=== PATIENT | female | born 1950 ===

== ENCOUNTER 2025-03-21 02:25 | Emergency (ER) | payer OTHER ==
[~2025-03-21] VITALS: Ht 165.1 cm; Wt 104.3 kg
[~2025-03-21 02:25] MED LIST: PACERONE100 MG; PROTONIX20 MG; SYNTHROID150 MCG; TOPROL XL25 MG
[2025-03-21] MEDS ORDERED: MORPHINE SULFATE 4 MG/ML VIAL IV STA (03:03)
[2025-03-21] MEDS ORDERED: ONDANSETRON HCL 2 MG/ML VIAL IV STA (03:04)
[2025-03-21] MEDS ORDERED: ONDANSETRON HCL 2 MG/ML VIAL ONE (03:10)
[2025-03-21] MEDS ORDERED: SODIUM CHLORIDE 0.45 % 1,000 ML IV ONE (03:15)
[2025-03-21 04:08] LABS: ALT/SGPT 23.0 U/L (12-78); AST/SGOT 19.0 U/L (15-37); BILIRUBIN TOTAL 0.7 mg/dL (0.3-1.2); BUN CREA RATIO 25.0 (7.0-25.0); CREATININE SERUM 0.88 mg/dL (0.55-1.02); GFR 62.64; GLOBULINA 3.4 G/DL (2.4-3.5); GLUCOSE FASTING 123.0 mg/dL (65-100); OSMOLALITY SERUM 282.0 MOSM/KG (275-295)
[2025-03-21] MEDS ORDERED: FAMOTIDINE/PF 20 MG/2 ML VIAL ONE (06:19)
[2025-03-21 07:30] LABS: BASO % 0.2 % (0.1-1.2); EOS # 0.01 (0.04-0.54); EOS % 0.1 % (0.7-7.0); LYMPH # 0.66 (1.18-3.74); LYMPH % 7.5 % (19.3-53.1); MEAN PLATELET VOLUME 9.40 fl (9.4-12.4); MONO # 0.48 (0.24-0.82); MONO % 5.5 % (4.7-12.5); NEUT # 7.57 (1.56-6.13); NEUT % 86.6 % (34.0-71.1); RED CELL DISTRIBUTION WIDTH 13.6 % (11.6-14.4)
[2025-03-21] MEDS ORDERED: KETOROLAC TROMETHAMINE 30 MG VIAL ONE (08:08)
[2025-03-21] MEDS ORDERED: KETOROLAC TROMETHAMINE 30 MG VIAL IV STA (08:09)
[2025-03-21 08:11] LABS: URINE APPEARANCE Clear; URINE BILIRRUBIN Negative (NEGATIVE); URINE BLOOD Small; URINE COLOR Yellow; URINE GLUCOSE Negative (NEGATIVE); URINE LEUKOCYTE Negative; URINE NITRATE Negative; URINE PROTEIN Negative (NEGATIVE); URINE UROBILINOGEN 0.2 E.U./dl
[2025-03-21 08:16] LABS: URINE BACTERIA 7.1 uL (0.0-1933); URINE RBC 5.5 uL (0.0-20.8)
[2025-03-21 08:19] LABS: URINE CAST 0.00 uL (0.0-1.40); URINE EPITHELIAL CELLS 0.9 uL (0.0-38.8); URINE KETONE 40 (NEGATIVE); URINE WBC 1.5 uL (0.0-23.2)
[2025-03-21] MEDS ORDERED: TAMSULOSIN HCL 0.4 MG CAP PO ONE ×2 (10:00→10:01)
[2025-03-21] MEDS ORDERED: MORPHINE SULFATE 4 MG/ML VIAL IV ONE ×2 (10:00→14:45)
== END 2025-03-21 19:55 | disposition designated cancer center or children's hospital (05) ==
LOC: ER 02:25
PROVIDERS: General Practice
DX: N20.0 Calculus of kidney (principal); R10.2 Pelvic and perineal pain; M54.50 Low back pain, unspecified; R11.10 Vomiting, unspecified; E11.9 Type 2 diabetes mellitus without complications; I10 Essential (primary) hypertension; Z88.5 Allergy status to narcotic agent
CPT/HCPCS: 36415; 74176; 96365; 99285; J1885; J2270 ×3; J2405